=== PATIENT | male | born 1985 | race Caucasian/White ===

== ENCOUNTER 2020-11-14 15:06 | Emergency (ER) | payer MEDICAID, SELFPAY ==
[~2020-11-14] VITALS: Ht 180.3 cm; Wt 136.1 kg
[~2020-11-14 15:06] MED LIST: BUPR1FIL3 SL; DEXT30TA10 PO; GABA-531 PO; NEU300 PO; TRAM50TA PO; [UNRECOGNIZED DRUG - OTHER]
--- NOTE | 2020-11-14 15:10 | NUR ---
Placed in room 6 . Placed on comb machine operator, blood pressure machine and pulse oximeter. To gown for exam. Side rails up. Report given to SIERRA Shelley.
[2020-11-14 15:19] VITALS: BP_SYST 115
--- NOTE | 2020-11-14 15:38 | NUR ---
RECEIVED AND IN ROOM, CALM, ALERT, RESP UNLABORED, SKIN WARM AND DRY. COMMUNICATES CLEARLY IN FULL COMPLETE SENTECES
--- NOTE | 2020-11-14 16:22 | NUR ---
DR VANN IN TO ASSESS
[2020-11-14] MEDS ORDERED: predniSONE 20 MG TABLET PO ONE (16:45)
[2020-11-14] MEDS ORDERED: ALBUTEROL SULFATE 0.083% 2.5 MG/3 ML VIAL.NEB INH ONE (16:45)
--- NOTE | 2020-11-14 17:32 | NUR ---
STATED FEELING MUCH BETTER AFTER HHN, SKIN WARM AND DRY. CLEAR MENTATION AND SPEECH, RESP UNLABORED, NO DISTRESS
--- NOTE | 2020-11-14 18:12 | NUR ---
CXR COMPLETED, COVID SWABS COMPLETED, PT STATED HE FEELS BETTER AND "JESICA TIGHT" S/P HHN
--- NOTE | 2020-11-14 18:19 | NUR ---
DR VANN IN TO REASSESS. PT MENDEZ, ALERT, GOOD SPIRITS
[2020-11-14] MEDS ORDERED: PRED20TA PO (18:24)
[2020-11-14] MEDS ORDERED: ALBMDI INH (18:24)
--- NOTE | 2020-11-14 18:34 | NUR ---
Patient given written and verbal discharge instructions and verbalizes understanding. ER MD discussed with patient the results and treatment provided. Patient in stable condition. ID arm band removed. Rx of ALBUTEROL given. Patient educated on pain management and to follow, PREDNISONE up with PMD. Pain Scale 0/10 Opportunity for questions provided and answered. Medication side effect fact sheet provided.
[2020-11-14 18:35] VITALS: BP_SYST 128
== END 2020-11-14 18:34 | disposition home or self-care (01) ==
LOC: SED 15:06
DX: J06.9 Acute upper respiratory infection, unspecified (principal); J98.01 Acute bronchospasm; I10 Essential (primary) hypertension; F17.210 Nicotine dependence, cigarettes, uncomplicated; Z88.0 Allergy status to penicillin; Z79.899 Other long term (current) drug therapy; Z20.822 Contact with and (suspected) exposure to COVID-19; Z71.6 Tobacco abuse counseling
CPT/HCPCS: 71045; 87426; 93005; 94640; 99285; J7512; J7613; U0003

== ENCOUNTER 2023-07-01 08:47 | Emergency (ER) | payer MEDICAID ==
[~2023-07-01] VITALS: Ht 180.3 cm; Wt 136.1 kg
[2023-07-01 08:47] VITALS: BP_SYST 145; PULSE 113; RESP 20; TEMP 97.1; O2SAT 97
[~2023-07-01 08:47] MED LIST changes: +ALBMDI INH; +PRED20TA PO
[2023-07-01] MEDS: ASPIRIN 81 MG TAB.CHEW PO ONE (09:16)
[2023-07-01 09:35] LABS: BASOPHILS % (AUTO) 0.4 % (0.0-2.0); EOSINOPHILS # (AUTO) 0.1 K/uL (0.0-0.4); EOSINOPHILS % (AUTO) 2.6 % (0.0-4.0); HEMATOCRIT 47.5 % (36-54); HEMOGLOBIN 16.6 g/dL (14.0-18.0); LYMPHOCYTES # (AUTO) 1.6 K/uL (1.0-5.5); MEAN CORPUSCULAR HEMOGLOBIN 30 pg (27-31); MEAN CORPUSCULAR HGB CONC 35 % (32-36); MEAN CORPUSCULAR VOLUME 87 fL (79.0-98.0); MONOCYTES # (AUTO) 0.3 K/uL (0.0-1.0); MONOCYTES % (AUTO) 6.4 % (1.7-9.3); NEUTROPHILS # (AUTO) 3.3 K/uL (1.8-7.7); NEUTROPHILS % (AUTO) 60.6 % (40.0-70.0); PLATELET COUNT (AUTO) 223 K/uL (130-430); RED BLOOD CELL COUNT(AUTO) 5.49 MIL/uL (4.2-6.2); RED CELL DISTRIBUTION WIDTH 13.3 % (9.0-15.0); WHITE BLOOD COUNT (AUTO) 5.4 K/uL (4.8-10.8)
[2023-07-01] MEDS: NACL 0.9% 1,000 ML IV ONE (09:39)
[2023-07-01] MEDS: KETOROLAC TROMETHAMINE 30 MG VIAL IVP ONE (09:39)
[2023-07-01 09:52] LABS: INR 1.1 (0.80-1.20)
[2023-07-01 09:53] LABS: ALANINE AMINOTRANSFERASE 60 U/L (12-78); ALBUMIN 3.8 g/dL (3.4-4.8); ANION GAP 11 (5-15); ASPARTATE AMINOTRANSFERASE 14 U/L (10-37); BILIRUBIN,DIRECT 0.1 mg/dL (0.0-0.3); CARBON DIOXIDE 27 mmol/L (23-29); CHLORIDE 106 mmol/L (98-107); CREATININE 1.06 mg/dL (0.55-1.30); GFR AFRICAN AMERICAN 100 mL/min (>90); GLUCOSE 137 mg/dL (74-106); POTASSIUM 3.7 mmol/L (3.5-5.1); SODIUM SERUM 144 mmol/L (136-145); TOTAL BILIRUBIN 0.4 mg/dL (0.0-1.0); TOTAL PROTEIN, SERUM 7.8 g/dL (6.4-8.3); UREA NITROGEN, BLOOD 15 mg/dL (8-21)
[2023-07-01 09:54] LABS: GFR NON AFRICAN-AMERICAN 82 mL/min (>90)
[2023-07-01 10:15] LABS: BARBITURATE, URINE NEGATIVE (NEG <=200); BENZODIAZEPINE, URINE NEGATIVE (NEG <=150); CANNABINOID, URINE NEGATIVE (NEG <=50); COCAINE, URINE NEGATIVE (NEG <=150); METHAMPHETAMINES SCREEN,URINE NEGATIVE (NEG <=500); OPIATE, URINE NEGATIVE (NEG <=100); PHENCYCLIDINE SCREEN,URINE NEGATIVE (NEG <=25); UR TRICYCLIC ANTIDEPRESSANTS NEGATIVE (NEG <=300); URINE AMPHETAMINE NEGATIVE (NEG <=500); URINE METHADONE NEGATIVE (NEG <=200); URINE OXYCODONE SCREEN NEGATIVE (NEG <=100)
[2023-07-01] MEDS ORDERED: VIS25 PO (11:15)
[2023-07-01 12:12] VITALS: BP_SYST 121; PULSE 97; RESP 20; TEMP 97.1; O2SAT 98
== END 2023-07-01 12:13 | disposition home or self-care (01) ==
LOC: SED 08:47
DX: R07.89 Other chest pain (principal); F41.9 Anxiety disorder, unspecified; R05.9 Cough, unspecified; R06.02 Shortness of breath; F17.200 Nicotine dependence, unspecified, uncomplicated; I10 Essential (primary) hypertension; Z88.0 Allergy status to penicillin; Z79.899 Other long term (current) drug therapy; Z79.2 Long term (current) use of antibiotics
CPT/HCPCS: 99285; 96374; 71045; 96361; 80307; 80076; 80048; 83880; 85025; 85379; 85610; 85730; 84484; 36415; 93005; J1885; J7030